=== PATIENT | female | born 1945 | race Caucasian/White ===

== ENCOUNTER 2017-07-06 12:00 | Outpatient (CLI) | payer MEDICARE, OTHER | END 2017-07-06 12:03 | LOC: RAD 12:00 | PROVIDERS: ATTEND Family Medicine | DX: E21.3 Hyperparathyroidism, unspecified (principal); E55.9 Vitamin D deficiency, unspecified | CPT/HCPCS: 77080 ==

== ENCOUNTER 2018-02-02 10:21 | Outpatient (CLI) | payer MEDICARE, OTHER ==
[2018-02-02 13:45] LABS: eGFR (Non-African) > 60
[2018-02-03 03:31] LABS: URINE CREAT MG/DAY 1100 mg/day (740-1570)
== END 2018-02-02 10:23 ==
LOC: LAB 10:21
PROVIDERS: ATTEND Internal Medicine Endocrinology, Diabetes & Metabolism
DX: E21.3 Hyperparathyroidism, unspecified (principal); E55.9 Vitamin D deficiency, unspecified
CPT/HCPCS: 80053; 82306; 82340; 82570; 83970

== ENCOUNTER 2018-02-08 11:51 | Outpatient (CLI) | payer MEDICARE, OTHER ==
--- NOTE | 2018-02-08 19:48 | Diagnostic Imaging Report ---
CATHY RAMIREZ [facility] [address] [facility].[address] [id number] Report Submission Date: Feb 08, 2018 1:24:13 PM CDT Patient Study Name: CHEYENNE KELLY Date: Feb 08, 2018 11:57:05 AM CDT Modality Type: DX Gender: F Description: LOWER EXTREMITY : 43 Institution: [facility] Physician: CATHY RAMIREZ Examination: Plain film right foot History: DEFORMITY OF RIGHT FOOT (Hx) Findings: 3 weightbearing views of the right foot demonstrates generalized osteopenia. Articular degenerative changes: most pronounced involving the 1st metatarsophalangeal articulation. No displaced cortical lucency. Inferior calcaneal spur. Pes planus on lateral view. No gross soft tissue abnormality. Impression: Osteopenia and degenerative changes. Pes planus. Electronically signed on Feb 08, 2018 1:24:13 PM CDT by: Dieudonne NUR
--- NOTE | 2018-02-08 19:49 | Diagnostic Imaging Report ---
CATHY RAMIREZ [facility] [id number] [facility].[address] [id number] Report Submission Date: Feb 08, 2018 1:21:13 PM CDT Patient Study Name: CHEYENNE KELLY Date: Feb 08, 2018 11:55:40 AM CDT Modality Type: DX Gender: F Description: LOWER EXTREMITY : 43 Institution: [facility] Physician: CATHY RAMIREZ Examination: Plain film right ankle History: PT STATES SHE FELL IN OCTOBER AND POSSIBLY TWISTED HER ANKLE AT THAT TIME. Findings: 3 weight bearing views of the right ankle demonstrates osteopenia. Articular spurring. Talar dome is intact. Inferior calcaneal spur. Small joint effusion. Impression: Osteopenia and degenerative changes. No acute appearing cortical abnormality. Electronically signed on Feb 08, 2018 1:21:13 PM CDT by: Dieudonne NUR
== END 2018-02-08 14:25 ==
LOC: RAD 11:51
PROVIDERS: ATTEND Podiatrist Foot & Ankle Surgery
DX: M21.961 Unspecified acquired deformity of right lower leg (principal); M76.821 Posterior tibial tendinitis, right leg; M25.571 Pain in right ankle and joints of right foot
CPT/HCPCS: 73610; 73630